=== PATIENT | female | born 1970 | race African-American/Black ===

== ENCOUNTER 2018-07-10 08:07 | Emergency (ER) | payer OTHER ==
[~2018-07-10] VITALS: Ht 160 cm; Wt 86.2 kg
--- OUTSIDE RECORDS SUMMARY | 2018-07-10 08:09 | XMS REPORT ---
Author Author [facility] Organization [facility] Address Unknown Phone Unavailable Care Team Providers Care Senior Analytical Chemist Name Role Phone Monik CORDOBA Unavailable Unavailable Problems This patient has no known problems. Allergies, Adverse Reactions, Alerts This patient has no known allergies or adverse reactions. Medications This patient has no known medications. Results Test Description Test Time Test Comments Text Results Atomic Results Result Comments KNEE LEFT THREE VIEWS [facility] [address] [address] Patient Name: FLORINA HOLLY MR #: [id number] : 1970 Age/Sex: 46/F Req #: [id number] [facility] Physician: Ordered by: ALICIA KELLER LEGAL SERVICES PROFESSIONAL Report #: [id number] Location: ER Room/Bed: Procedure: [id number] DX/KNEE LEFT THREE VIEWS Exam Date: 05/19/17 Exam Time: 1130 REPORT STATUS: Signed Left complete knee. CPT CODE: 11605. INDICATION: Pain, no trauma COMPARISON: None FINDINGS: No evidence of acute fracture or dislocation. There is mild pointing of the tibial spines. No significant medial or lateral compartment narrowing. There is a linear calcification adjacent to the lateral femoral condyle. IMPRESSION: Calcification adjacent to the lateral femoral condyle could be in the lateral collateral ligament. Early degenerative changes of the knee. Signed by: Dr. Fredrick Mcallister MD on 05/19/2017 12:49 PM Dictated By: FREDRICK MCALLISTER MD 48 Transcribed By: KRISTY on 05/19/171248 COPY TO: ALICIA KELLER NP
--- OUTSIDE RECORDS SUMMARY | 2018-07-10 08:09 | XMS REPORT | Summary of Care ---
Author Author [facility] Address [address], [address] [place] [address] Phone Care Team Providers Care Director Of Safety Name Role Phone DOMINGUEZ CHÁVEZ M.D. 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 Quantity: 30 KYLER Lee, DOMINGUEZ * Start : 21-May-2017 Active Allergies and Adverse Reactions Name Dates Details No Known Drug Allergies (Allergy) Status: Active Procedures Procedure Dates Details Procedures not documented Immunization Name Dates Details Immunizations not documented Family History Name Dates Details Family history of diabetes mellitus (V18.0, Z83.3) Comments: Family History Status: Active Family history of arthritis (V17.7, Z82.61) Comments: Family History Status: Active Family history of malignant neoplasm (V16.9, Z80.9) Comments: Family History Status: Active Family history of Heart trouble (429.9, I51.9) Comments: Family History Status: Active Social History Name Dates Details Unknown if ever smoked Vital Signs Date Test Result Details No Known Vitals to report Results Date Description Value Details Results not documented Plan of Care Name Dates Details Planned Observations Planned Goals not documented Instructions Name Dates Details Instructions not documented Encounters Appointment; DOMINGUEZ CHÁVEZ M.D. Encounter Diagnosis: Problem not documented On: 21-May-2017 13:00 Appointment; DOMINGUEZ CHÁVEZ M.D. Encounter Diagnosis: Problem not documented On: 19-Jun-2017 12:45 Appointment; DOMINGUEZ CHÁVEZ M.D. Encounter Diagnosis: Problem not documented On: 18-Jul-2017 7:30
== END 2018-07-10 08:54 | disposition home or self-care (01) ==
LOC: FSED 08:07
DX: R05 Cough (principal); J20.8 Acute bronchitis due to other specified organisms; J02.9 Acute pharyngitis, unspecified
CPT/HCPCS: 83518; 87400; 99283

== ENCOUNTER 2018-07-31 05:29 | Emergency (ER) | payer OTHER ==
[~2018-07-31] VITALS: Ht 160 cm; Wt 86.2 kg
== END 2018-07-31 06:18 | disposition home or self-care (01) ==
LOC: FSED 05:29
DX: R50.9 Fever, unspecified (principal); R05 Cough; B34.9 Viral infection, unspecified; J06.9 Acute upper respiratory infection, unspecified
CPT/HCPCS: 99282

== ENCOUNTER 2019-03-01 09:33 | Emergency (ER) | payer OTHER ==
[~2019-03-01] VITALS: Ht 162.6 cm; Wt 85.7 kg
[2019-03-01] MEDS ORDERED: DIAZEPAM 5 MG TAB PO ONE (10:15)
[2019-03-01] MEDS ORDERED: HYDROCODONE/APAP 5MG-325MG TAB PO ONE (10:15)
[2019-03-01] MEDS ORDERED: KETOROLAC TROMETHAMINE 60 MG/2 ML VIAL IM ONE (10:15)
--- NOTE | 2019-03-01 10:47 | Diagnostic Imaging Report ---
History: Occipital pain Comparison studies: None Technique: Axial images were obtained from the skull base to the vertex. Coronal and sagittal reconstructions obtained from the axial data. Dose modulation, iterative reconstruction, and/or weight based adjustment of the mA/kV was utilized to reduce the radiation dose to as low as reasonably achievable. Intravenous contrast: None Findings: Scalp/skull: No abnormalities. No fractures, blastic or lytic lesions. Extra-axial spaces: No masses. No fluid collections. Brain sulci: Appropriate for age. Ventricles: Normal in size and configuration. No hydrocephalus. Parenchyma: No abnormal densities. No masses, hemorrhage, acute or chronic cortical vascular insults. Sellar/suprasellar region: No abnormalities Craniocervical junction: Patent foramen magnum. No Chiari one malformation. Incidental findings: None. IMPRESSION: No abnormalities. Signed by: Dr. David Rob M.D. on 03/01/2019 10:44 AM
[2019-03-01 11:58] VITALS: BP 134/68
== END 2019-03-01 12:02 | disposition home or self-care (01) ==
LOC: ER 09:33
DX: G44.219 Episodic tension-type headache, not intractable (principal)
CPT/HCPCS: 70450; 99283; J1885

== ENCOUNTER 2019-03-03 13:18 | Emergency (ER) | payer OTHER ==
[~2019-03-03] VITALS: Ht 162.6 cm; Wt 85.7 kg
--- NOTE | 2019-03-03 15:10 | Diagnostic Imaging Report ---
History: Neck pain since Saturday Comparison studies: None Technique: Axial images were obtained through the cervical region.. Coronal and sagittal images reconstructed from the axial data.. Intravenous contrast: None Dose modulation, iterative reconstruction, and/or weight based adjustment of the mA/kV was utilized to reduce the radiation dose to as low as reasonably achievable. Findings: Fractures: None. Soft tissues: No gross abnormalities. Atlantoaxial articulation: Degenerative changes without acute abnormality. Alignment: Straightening of the normal lordosis. No scoliosis. Cervicomedullary junction: No abnormalities. The foramen magnum is patent. Vertebrae: No infection or neoplasm. Degenerative changes: Disc degeneration with decreased intervertebral space, endplate sclerosis and posterior osteophytes at C6-7, resulting in mild canal stenosis and mild right foraminal narrowing. Other degenerative changes without significant (moderate or severe canal stenosis or foraminal narrowing. IMPRESSION: 1. No acute cervical spine abnormalities. Mild degenerative changes of the cervical spine as described above more significant at C6-7. 2. Cannot exclude ligament, spinal cord and or vascular abnormalities on the basis of this examination. Signed by: DR Shaan Beckford M.D. on 03/03/2019 3:06 PM
[2019-03-03] MEDS ORDERED: VALIUM2 MG PO (15:50)
[2019-03-03] MEDS ORDERED: DIAZEPAM 2 MG TAB PO ONE (16:00)
== END 2019-03-03 16:36 | disposition home or self-care (01) ==
LOC: ER 13:18
DX: S16.1XXA Strain of muscle, fascia and tendon at neck level, initial encounter (principal); G89.29 Other chronic pain; X58.XXXA Exposure to other specified factors, initial encounter
CPT/HCPCS: 72125; 99283

== ENCOUNTER 2019-09-23 18:47 | Emergency (ER) | payer OTHER ==
[~2019-09-23] VITALS: Ht 162.6 cm; Wt 85.7 kg
[~2019-09-23 18:47] MED LIST: VALIUM2 MG PO
--- NOTE | 2019-09-23 20:00 | NUR ---
TO XR WITH TECH
--- NOTE | 2019-09-23 20:37 | Diagnostic Imaging Report ---
EXAMINATION: CXR 2 VIEW - HOPD INDICATION: Cough for one week ^cough, fever ^[id number] ^2010 COMPARISON: None FINDINGS: PA and lateral views TUBES and LINES: None. LUNGS: Lungs are well inflated. There is no evidence of pneumonia or pulmonary edema. PLEURA: No pleural effusion or pneumothorax. HEART AND MEDIASTINUM: The cardiomediastinal silhouette is unremarkable.. BONES AND SOFT TISSUES: No focal osseous lesions. Soft tissues are unremarkable. UPPER ABDOMEN: Unremarkable. IMPRESSION: No acute thoracic abnormality. Signed by: Dr. Bettye Mcallister MD on 09/23/2019 8:34 PM
[2019-09-23] MEDS ORDERED: TESSALON PERLE100 MG PO (21:05)
[2019-09-23] MEDS ORDERED: IBUPROFEN600 MG PO (21:05)
[2019-09-23] MEDS ORDERED: DOXYCYCLINE HY100 MG PO (21:05)
[2019-09-23 23:21] VITALS: BP 121/71
== END 2019-09-23 21:18 | disposition home or self-care (01) ==
LOC: FSED 18:47
DX: J20.9 Acute bronchitis, unspecified (principal); J06.9 Acute upper respiratory infection, unspecified
CPT/HCPCS: 71046; 99283

== ENCOUNTER 2020-04-22 05:53 | Emergency (ER) | payer OTHER ==
[~2020-04-22] VITALS: Ht 162.6 cm; Wt 85.7 kg
[~2020-04-22 05:53] MED LIST changes: +DOXYCYCLINE HY100 MG PO; +IBUPROFEN600 MG PO; +TESSALON PERLE100 MG PO
--- OUTSIDE RECORDS SUMMARY | 2020-04-22 06:17 | XMS REPORT | Continuity of Care Document ---
Author Author [facility] Organization [facility] Address [address] [place] [address] Phone Unavailable Care Team Providers Care Laboratory Equipment Installer Name Role Phone Rimma AG PCP Ke RESENDIZ Attphys Unavailable Rimma ARMON Attphys Unavailable Ke GIORDANO Attphys Unavailable DOMINGUEZ CHÁVEZ M.D. Attphys Unavailable Monik CORDOBA Attphys Unavailable Payers Payer Name Policy Type Policy Number Effective Date Expiration Date [id number] 2017 00:00:00 2018 00:0 0:00 [facility] Ppo [id number] [facility] Cigna Ppo [id number] [facility] Problems Condition Name Condition Details Condition Category Status Onset Date Resolution Date Last Treatment Date Treating Clinician Comments Source Chondromalacia of patella, right Chondromalacia of patella, righ t Problem Active [facility] Allergies, Adverse Reactions, Alerts This patient has no known allergies or adverse reactions. Family History Family Member Diagnosis Comments Start Date Stop Date Source Unknown Family Member Family history of diabetes mellitus Family Hist ory [facility] Unknown Family Member Family history of arthritis Family History [facility] Unknown Family Member Family history of malignant neoplasm Family His tory [facility] Unknown Family Member Family history of Heart trouble Family History [facility] Medications Ordered Medication Name Filled Medication Name Start Date Stop Da te Current Medication? Ordering Clinician Indication Dosage Frequency Signature (SIG) Comments Components Source Benzonatate (Tessalon Perle) 100 Mg Capsule Benzonatat e (Tessalon Perle) 100 Mg Capsule 2019-09-23 00:00:00 Yes Lawrence Resendiz Md 100 Every 8 Hours [facility] Doxycycline Hyclate 100 Mg Capsule Doxycycline Hyclate 100 M g Capsule 2019-09-23 00:00:00 Yes Lawrence Resendiz Md 100 Twice A Day [facility] Ibuprofen 600 Mg Tablet Ibuprofen 600 Mg Tablet 2019-09-23 00:00:00 Yes Lawrence Resendiz Md 600 Every 6 Hours C [facility] Diazepam (Valium) 2 Mg Tablet Diazepam (Valium) 2 Mg Tablet 2018 00:00:00 Yes Chago Jones Np 2 Every 6 Hours as nee ded for Muscle Spasms [facility] Meloxicam 7.5 MG Oral Tablet Meloxicam 7.5 MG Oral Tablet 00:00:00 Yes DOMINGUEZ CHÁVEZ M.D. QD TAKE 1 TABLET DAILY WITH FOOD . [facility] Vital Signs Vital Name Observation Time Observation Value Comments Source BP Systolic 2017-05-21 14:13:00 102 mm[Hg] [facility] BP Diastolic 2017-05-21 14:13:00 75 mm[Hg] [facility] Height 2017-05-21 14:13:00 64 [in_us] [facility] Weight 2017-05-21 14:13:00 190 [lb_av] [facility] Body Mass Index Calculated 2017-05-21 14:13:00 32.61 kg/m2 [facility] Temperature 2017-05-21 14:13:00 98.3 [degF] [facility] Heart Rate 2017-05-21 14:13:00 96 /min [facility] Procedures Procedure Date / Time Performed Performing Clinician [facility] e Computed tomography of cervical spine without contrast 03-03 00:00:00 CHRIS RAMON [facility] Computed tomography of brain without radiopaque contrast 201 03-22-18 00:00:00 SHARAD GIORDANO [facility] Encounters Start Date/Time End Date/Time Encounter Type Admission Type [facility] Facility Care Department Encounter ID Source 2019-09-23 18:47:00 2019-09-23 21:18:00 Departed Emergency Room 1 LAWRENCE RESENDIZ [facility] [id number] [facility] 2019-03-03 13:18:00 2019-03-03 16:36:00 Departed Emergency Room 1 CHRIS RAMON [facility] [id number] [facility] 2019-03-01 09:33:00 2019-03-01 12:02:00 Departed Emergency Room 1 SHARAD GIORDANO [facility] [id number] [facility] 2018-07-31 05:29:00 2018-07-31 06:18:00 Departed Emergency Room [facility] [id number] [facility] 2018-07-10 08:07:00 2018-07-10 08:54:00 Departed Emergency Room [facility] [id number] [facility] 2017-07-18 07:30:00 2017-07-18 07:30:00 Appointment; DOMINGUEZ CHÁVEZ M.D. SZETO, JOCELYN, M.D. [facility] UTP [id number] [facility] 2017-06-19 12:45:00 2017-06-19 12:45:00 Appointment; DOMINGUEZ CHÁVEZ M.D. SZETO, JOCELYN, M.D. [facility] UTP [id number] [facility] 2017-05-21 13:00:00 2017-05-21 13:00:00 Appointment; DOMINGUEZ CHÁVEZ M.D. SZETO, JOCELYN, M.D. [facility] UTP [id number] [facility] Results Test Description Test Time Test Comments Results Result Comments Source [facility] 2019-09-23 20:33:[address] [address] Patient Name: FLORINA CRANE MR #: [id number] : 1970 Age/Sex: 48/F Req #: [id number] Adm Physician: Ordered by: LAWRENCE RESENDIZ MD Report #: [id number] Location: ED Room/Bed: Procedure: [id number] HOPD/CXR 2 VIEW - HOPD Exam Date: 09/23/19 Exam Time: 2010 REPORT STATUS: Signed EXAMINATION: CXR 2 VIEW - HOPD INDICATION: Cough for one week cough, fever [id number] COMPARISON: None FINDINGS: PA and lateral views TUBES and LINES: None. LUNGS: Lungs are well inflated. There is no evidence of pneumonia or pulmonary edema. PLEURA: No pleural effusion or pneumothorax. HEART AND MEDIASTINUM: The cardiomediastinal silhouette is unremarkable.. BONES AND SOFT TISSUES: No focal osseous lesions. Soft tissues are unremarkable. UPPER ABDOMEN: Unremarkable. IMPRESSION: No acute thoracic abnormality. Signed by: Dr. Fredrick Bates MD on 09/23/2019 8:34 PM Dictated By: FREDRICK BATES MD 33 Transcribed By: KRISTY on 09/23/192033 COPY TO: LAWRENCE RESENDIZ MD CT CERVICAL SPINE WO 2019-03-03 14:48:00 [address] [address] Patient Name: FLORINA CRANE MR #: [id number] : 1970 Age/Sex: 48/F Req #: [id number] Adm Physician: Ordered by: CHRIS RAMON MD Report #: [id number] Location: ER Room/Bed: Procedure: [id number] CT/CT CERVICAL SPINE WO Exam Date: 03/03/19 Exam Time: 1430 REPORT STATUS: Signed History: Neck pain since Saturday Comparison studies: None Technique: Axial images were obtained through the cervical region.. Coronal and sagittal images reconstructed from the axial data.. Intravenous contrast: None Dose modulation, iterative reconstruction, and/or weight based adjustment of the mA/kV was utilized to reduce the radiation dose to as low as reasonably achievable. Findings: Fractures: None. Soft tissues: No gross abnormalities. Atlantoaxial articulation: Degenerative changes without acute abnormality. Alignment: Straightening of the normal lordosis. No scoliosis. Cervicomedullary junction: No abnormalities. The foramen magnum is patent. Vertebrae: No infection or neoplasm. Degenerative changes: Disc degeneration with decreased intervertebral space, endplate sclerosis and posterior osteophytes at C6-7, resulting in mild canal stenosis and mild right foraminal narrowing. Other degenerative changes without significant (moderate or severe canal stenosis or foraminal narrowing. IMPRESSION: 1. No acute cervical spine abnormalities. Mild degenerative changes of the cervical spine as described above more significant at C6-7. 2. Cannot exclude ligament, spinal cord and or vascular abnormalities on the basis of this examination. Signed by: DR Shaan Beckford M.D. on 03/03/2019 3:06 PM Dictated By: SHAAN MCKNIGHT MD 1506 Transcribed By: KRISTY on 03/03/19 1506 COPY TO: CRHIS RAMON MD CT BRAIN WO 2019-03-01 10:42:00 [address] [address] Patient Name: FLORINA CRANE MR #: [id number] : 1970 Age/Sex: 48/F Req #: [id number] Adm Physician: Ordered by: SHARAD GIORDANO MD Report #: [id number] Location: ER Room/Bed: Procedure: [id number] CT/CT BRAIN WO Exam Date: 03/01/19 Exam Time: 1026 REPORT STATUS: Signed History: Occipital pain Comparison studies: None Technique: Axial images were obtained from the skull base to the vertex. Coronal and sagittal reconstructions obtained from the axial data. Dose modulation, iterative reconstruction, and/or weight based adjustment of the mA/kV was utilized to reduce the radiation dose to as low as reasonably achievable. Intravenous contrast: None Findings: Scalp/skull: No abnormalities. No fractures, blastic or lytic lesions. Extra-axial spaces: No masses. No fluid collections. Brain sulci: Appropriate for age. Ventricles: Normal in size and configuration. No hydro cephalus. Parenchyma: No abnormal densities. No masses, hemorrhage, acute or chronic cortical vascular insults. Sellar/suprasellar region: No abnormalities Craniocervical junction: Patent foramen magnum. No Chiari one malformation. Incidental findings: None. IMPRESSION: No abnormalities. Signed by: Dr. David Gill M.D. on 03/01/2019 10:44 AM Dictated By: DAVID GILL MD, MD 1044 Transcribed By: KRISTY on 03/01/19 1044 COPY TO: SHARAD GIORDANO MD KNEE LEFT THREE VIEWS [place] [address] Patient Name: FLORINA HOLLY MR #: [id number] : 1970 Age/Sex: 46/F Req #: [id number] Adm Physician: Ordered by: ALICIA KELLER SWITCH CREW SUPERVISOR Report #: [id number] Location: ER Room/Bed: Procedure: [id number] DX/KNEE LEFT THREE VIEWS Exam Date: 05/19/17 Exam Time: 1130 REPORT STATUS: Signed Left complete knee. CPT CODE: 73258. INDICATION: Pain, no trauma COMPARISON: None FINDINGS: [...] of the knee. Signed by: Dr. Fredrick Bates MD on 05/19/2017 12:49 PM Dictated By: FREDRICK BATES MD 1249 Transcribed By: KRISTY on 05/19/17 1249 COPY TO: ALICIA KELLER NP
[2020-04-22] MEDS ORDERED: KETOROLAC TROMETHAMINE 60 MG/2 ML VIAL ONE (06:21)
[2020-04-22] MEDS ORDERED: KETOROLAC TROMETHAMINE 60 MG/2 ML VIAL IM ONE ×2 (06:30)
--- NOTE | 2020-04-22 06:35 | Emergency Department Note ---
History of Present Illnes History of Present Illness Chief Complaint: General Medicine Complaints History of Present Illness This is a 49 year old female 49 Y/O FEMALE PT AAOX3 PRESENTS TO ED WITH PAIN TO RIGHT SIDE OF NECK WITH MOVEMENT; V/S/S; NO NEURO DEFICITS NOTED; RESP RATE AND EFFORT ARE WNL, O2 SAT RA 99%; SKIN WARM, DRY, COLOR WNL FOR PT; ER MD TO TRIAGE FOR INITIAL EVAL. Historian: Patient Arrival Mode: Car Group Account Director Required: No Onset (how long ago): week(s) (3) Location: RIGHT NECK Quality: PAIN Radiation: Reports non-radiation Severity: moderate Onset quality: gradual Timing of current episode: intermittent Progression: waxing and waning Chronicity: recurrent Relieving factors: rest Exacerbating factors: movement Associated symptoms: Reports denies other symptoms Treatments prior to arrival: NSAID Past Medical/Family History Physician Review I have reviewed the patient's past medical and family history. Any updates have been documented here. Past Medical History Recent Fever: No Clinical Suspicion of Infectio: No New/Unexplained Change in Ment: No Past Medical History: Hypertension, Hyperlipedemia Other Medical History: PRE-DIABETES Past Surgical History: Hysterectomy Social History Smoking Cessation: Never Smoker Counseling Performed: No Alcohol Use: None Any Illegal Drug Use: No TB Exposure/Symptoms: No Physically hurt or threatened: No Family History Family history of heart diseas: No Other Last Tetanus: GREATER THAN 5YRS Any Pre-Existing Lines (PICC,: No Review of Systems Review of Systems Constitutional: Reports no symptoms EENTM: Reports no symptoms Cardiovascular: Reports no symptoms Respiratory: Reports no symptoms Gastrointestinal: Reports no symptoms Genitourinary: Reports no symptoms Musculoskeletal: Reports as per HPI, Reports neck pain Integumentary: Reports no symptoms Neurological: Reports no symptoms Psychological: Reports no symptoms Endocrine: Reports no symptoms Hematological/Lymphatic: Reports no symptoms Physical Exam Related Data Allergies: Coded Allergies: No Known Allergies (Unverified , 05/19/17) Triage Vital Signs Vital Signs Date Time Temp Pulse Resp B/P (MAP) Pulse Ox O2 Delivery O2 Flow Rate FiO2 04/22/20 06:13 98.4 92 17 139/81 99 Room Air Vital signs reviewed: Yes Physical Exam CONSTITUTIONAL Constitutional: Present well-developed, Present well-nourished HENT HENT: Present normocephalic, Present atraumatic, Present oropharynx clear/moist, Present nose normal HENT L/R: Present left ext ear normal, Present right ext ear normal EYES Eyes: Reports PERRL, Reports conjunctivae normal NECK Neck: Present ROM normal, Present supple, Present other (MILD TENDERNESS/SPASM RIGHT PARACERVICAL MM) PULMONARY Pulmonary: Present effort normal, Present breath sounds normal CARDIOVASCULAR Cardiovascular: Present regular rhythm, Present heart sounds normal, Present capillary refill normal, Present normal rate GASTROINTESTINAL Abdominal: Present soft, Present nontender, Present bowel sounds normal GENITOURINARY Genitourinary: Present exam deferred SKIN Skin: Present warm, Present dry MUSCULOSKELETAL Musculoskeletal: Present ROM normal NEUROLOGICAL Neurological: Present alert, Present oriented x 3, Present no gross motor or sensory deficits PSYCHOLOGICAL Psychological: Present mood/affect normal, Present judgement normal Assessment & Plan Medical Decision Making MDM MUSCLE SPASM Reassessment Reassessment DC HOME, F/U PCP, TORADOL PO, VALIUM 5 MG PO TID PRN (ONLY WHILE AT HOME, NO OPE RATING VEHICLE/MACHINERY, ETC) Assessment & Plan Final Impression: (1) Muscle strain Depart Disposition: HOME, SELF-CARE Last Vital Signs Date Time Temp Pulse Resp B/P (MAP) Pulse Ox O2 Delivery O2 Flow Rate FiO2 04/22/20 06:13 98.4 92 17 139/81 99 Room Air Home Meds Active Scripts Ibuprofen (IBUPROFEN) 600 Mg Tablet, 600 MG PO Q6H, #20 Prov:LAWRENCE RESENDIZ MD 09/23/19 Benzonatate (TESSALON PERLE) 100 Mg Capsule, 100 MG PO Q8H, #20 Prov:LAWRENCE RESENDIZ MD 09/23/19 Doxycycline Hyclate (DOXYCYCLINE HYCLATE) 100 Mg Capsule, 100 MG PO BID for 7 Days, #14 0 Refills Prov:LAWRENCE RESENDIZ MD 09/23/19 Diazepam (VALIUM) 2 Mg Tablet, 2 MG PO Q6H PRN for MUSCLE SPASMS, #20 0 Refills Prov:LEE WILKINS AGENT BASED MODELER 03/03/19 Medications in the ED Ketorolac Tromethamine 60 mg STK-MED ONCE .ROUTE ; Start 04/22/20 at 06:21; S top 04/22/20 at 06:14; Status DC Ketorolac Tromethamine 60 mg ONCE ONCE IM ; Start 04/22/20 at 06:30; Stop 04/22/20 at 06:31; Status UNV Ketorolac Tromethamine 60 mg ONCE ONCE IM ; Start 04/22/20 at 06:30; Stop 04/22/20 at 06:31; Status UNV SHARAD GIORDANO MD Apr 22, 2020 06:34
== END 2020-04-22 06:55 | disposition home or self-care (01) ==
LOC: ER 06:15
DX: S16.1XXA Strain of muscle, fascia and tendon at neck level, initial encounter (principal); I10 Essential (primary) hypertension; E78.5 Hyperlipidemia, unspecified
CPT/HCPCS: 99282; J1885

== ENCOUNTER → 2020-07-13 | Outpatient (CLI) | payer OTHER ==
[~2020-07-13] MED LIST changes: +COVID-19 VACC, MRNA(MODERNA)/PF 100 MCG/0.5 ML VIAL IM ONE
== END ==
LOC: EDSTATUS 08:51 → VACCPMC 16:30
DX: Z23 Encounter for immunization (principal); Z20.828 Contact with and (suspected) exposure to other viral communicable diseases

== ENCOUNTER → 2020-08-15 | Outpatient (CLI) | payer OTHER | LOC: VACCPMC 10:59 | DX: Z23 Encounter for immunization (principal); Z20.822 Contact with and (suspected) exposure to COVID-19 | CPT/HCPCS: 0012A; 91301 ==

== ENCOUNTER 2020-10-06 07:59 | Outpatient (RCR) | payer OTHER ==
[~2020-10-06 07:59] MED LIST changes: -COVID-19 VACC, MRNA(MODERNA)/PF 100 MCG/0.5 ML VIAL IM ONE
[2020-10-13] MEDS ORDERED: LISINOPRIL5 MG PO (18:16)
[2020-10-13] MEDS ORDERED: METFORMIN HCL500 MG PO (18:16)
== END 2020-10-12 ==
LOC: PT 07:59
PROVIDERS: ATTEND Specialist
DX: S16.1XXA Strain of muscle, fascia and tendon at neck level, initial encounter (principal)

== ENCOUNTER 2020-10-13 14:15 | Observation (INO) | payer OTHER ==
[~2020-10-13] VITALS: Ht 162.6 cm; Wt 88.9 kg
[2020-10-13] MEDS ORDERED: SODIUM CHLORIDE 0.9% 1000ML 1,000 ML IV STA (14:55)
[2020-10-13 15:36] LABS: BASOPHILS # (AUTO) 0.1 (0.0-0.1); BASOPHILS % 0.8 % (0.0-1.0); EOSINOPHILS # (AUTO) 0.1 (0.0-0.4); EOSINOPHILS % 0.8 % (0.0-6.0); HEMATOCRIT 37.8 % (34.2-44.1); HEMOGLOBIN 12.3 g/dL (12.0-16.0); LYMPHOCYTES # (AUTO) 3.7 (1.0-3.2); LYMPHOCYTES % 31.5 % (18.0-39.1); MEAN CORPUSCULAR HEMOGLOBIN 28.3 pg (28-32); MEAN CORPUSCULAR HGB CONC 32.5 g/dL (31-35); MEAN CORPUSCULAR VOLUME 87.1 fL (81-99); MONOCYTES # (AUTO) 0.6 (0.2-0.8); MONOCYTES % 5.2 % (4.4-11.3); NEUTROPHILS # (AUTO) 7.1 (2.1-6.9); NEUTROPHILS % 61.1 % (38.7-80.0); PLATELET COUNT 448 x10e3/uL (140-360); RED BLOOD COUNT 4.34 x10e6/uL (3.6-5.1); RED CELL DISTRIBUTION WIDTH 13.8 % (11.7-14.4)
[2020-10-13 15:38] LABS: INR 0.83; PROTHROMBIN TIME 11.9 seconds (11.9-14.5)
[2020-10-13 15:39] LABS: PARTIAL THROMBOPLASTIN TIME 28.7 seconds (23.8-35.5)
[2020-10-13 15:47] LABS: ALANINE AMINOTRANSFERASE 21 IU/L (0-55); ALBUMIN 3.8 g/dL (3.5-5.0); ALBUMIN/GLOBULIN RATIO 0.9 (0.8-2.0); ALKALINE PHOSPHATASE 96 IU/L (40-150); BLOOD UREA NITROGEN 12 mg/dL (7-26); BUN/CREATININE RATIO 16 (6-25); CALCIUM 9.6 mg/dL (8.4-10.2); CARBON DIOXIDE 27 mmol/L (22-29); CHLORIDE 99 mmol/L (98-107); CREATINE KINASE 83 IU/L (29-168); CREATININE, SERUM 0.74 mg/dL (0.57-1.11); EST GLOMERULAR FILTRATION RATE > 60 ML/MIN (60-); GLUCOSE 147 mg/dL (74-118); MAGNESIUM 1.8 MG/DL (1.3-2.1); SODIUM 137 mmol/L (136-145)
[2020-10-13 15:53] LABS: CLARITY,URINE SL CLOUDY (CLEAR); COLOR,URINE YELLOW (YELLOW); LEUKOCYTE ESTERASE ,URINE TRACE (NEGATIVE); NITRITE,URINE POSITIVE (NEGATIVE)
[2020-10-13 15:54] LABS: KETONES,URINE NEGATIVE (NEGATIVE); PROTEIN,URINE DIPSTICK NEGATIVE (NEGATIVE); URINE UROBILINOGEN 0.2 mg/dL (0.2 - 1)
[2020-10-13 16:05] LABS: BACTERIA,URINE MODERATE /HPF; EPITHELIAL CELLS,URINE MODERATE /LPF; RBC,URINE 0-5 /HPF (0-5); WBC,URINE (MAN) 0-5 /HPF (0-5)
[2020-10-13] MEDS ORDERED: ONDANSETRON HCL INJ 2MG/ML 2ML 2 MG/ML VIAL IV PRN (16:45)
[2020-10-13] MEDS ORDERED: SODIUM CHLORIDE 0.9% 1000ML 1,000 ML IV SCH (16:45)
[2020-10-13 18:14] VITALS: BP 123/72
[2020-10-13] MEDS ORDERED: METFORMIN HCL500 MG PO (18:16)
[2020-10-13] MEDS ORDERED: LISINOPRIL5 MG PO (18:16)
[2020-10-13 18:30] VITALS: BP 123/72
[2020-10-14] MEDS ORDERED: POLYETHYLENE GLYCOL 3350 17 GM PACK PO PRN (03:15)
[2020-10-14] MEDS ORDERED: ACETAMINOPHEN 325 MG TAB PO PRN (03:15)
[2020-10-14] MEDS ORDERED: TEMAZEPAM 7.5 MG CAP PO PRN (03:15)
[2020-10-14] MEDS ORDERED: HYDRALAZINE HCL 20 MG/ML VIAL IV PRN (03:15)
[2020-10-14 05:28] VITALS: BP 116/75
[2020-10-14 05:48] LABS: BASOPHILS # (AUTO) 0.1 (0.0-0.1); BASOPHILS % 0.7 % (0.0-1.0); EOSINOPHILS # (AUTO) 0.1 (0.0-0.4); HEMATOCRIT 35.7 % (34.2-44.1); HEMOGLOBIN 11.4 g/dL (12.0-16.0); LYMPHOCYTES # (AUTO) 3.3 (1.0-3.2); LYMPHOCYTES % 39.9 % (18.0-39.1); MEAN CORPUSCULAR HGB CONC 31.9 g/dL (31-35); MEAN CORPUSCULAR VOLUME 87.7 fL (81-99); MONOCYTES # (AUTO) 0.4 (0.2-0.8); MONOCYTES % 4.4 % (4.4-11.3); NEUTROPHILS # (AUTO) 4.4 (2.1-6.9); NEUTROPHILS % 53.8 % (38.7-80.0); PLATELET COUNT 414 x10e3/uL (140-360); RED BLOOD COUNT 4.07 x10e6/uL (3.6-5.1); RED CELL DISTRIBUTION WIDTH 13.8 % (11.7-14.4)
[2020-10-14 06:15] LABS: ALANINE AMINOTRANSFERASE 19 IU/L (0-55); ALBUMIN 3.3 g/dL (3.5-5.0); ALBUMIN/GLOBULIN RATIO 0.8 (0.8-2.0); ALKALINE PHOSPHATASE 79 IU/L (40-150); ANION GAP 12.9 mmol/L (8-16); BLOOD UREA NITROGEN 10 mg/dL (7-26); BUN/CREATININE RATIO 15 (6-25); CALCIUM 8.9 mg/dL (8.4-10.2); CARBON DIOXIDE 24 mmol/L (22-29); CHLORIDE 106 mmol/L (98-107); CREATININE, SERUM 0.67 mg/dL (0.57-1.11); EST GLOMERULAR FILTRATION RATE > 60 ML/MIN (60-); GLUCOSE 147 mg/dL (74-118); POTASSIUM 3.9 mmol/L (3.5-5.1); SODIUM 139 mmol/L (136-145)
[2020-10-14 06:35] LABS: CREATINE KINASE 58 IU/L (29-168)
[2020-10-14] MEDS ORDERED: ACCU-CHEK GUID1 EAC2 (06:54)
[2020-10-14] MEDS ORDERED: LANCET 30G-GLU1 EACH (06:55)
[2020-10-14 06:57] LABS: CHOL/HDL RATIO 4.2 (3.0-3.6); MAGNESIUM 1.8 MG/DL (1.3-2.1); PHOSPHORUS 3.9 MG/DL (2.3-4.7)
[2020-10-14 07:18] LABS: THYROID STIMULATING HORMONE 0.997 uIU/mL (0.350-4.940)
[2020-10-14 08:03] VITALS: BP 108/49
[2020-10-14] MEDS ORDERED: FAMOTIDINE 20 MG TAB PO SCH (09:00)
[2020-10-14] MEDS ORDERED: DOCUSATE SODIUM 100 MG CAP PO SCH (09:00)
[2020-10-14 09:10] VITALS: BP 108/49
== END 2020-10-14 09:50 | disposition home or self-care (01) ==
LOC: ER 14:36 → ERHOLD 16:43 → IMCU 17:46
PROVIDERS: ADMIT Internal Medicine; ATTEND Internal Medicine
DX: R42 Dizziness and giddiness (principal); T38.3X5A Adverse effect of insulin and oral hypoglycemic [antidiabetic] drugs, initial encounter; E11.9 Type 2 diabetes mellitus without complications; Z79.84 Long term (current) use of oral hypoglycemic drugs; I10 Essential (primary) hypertension; E78.5 Hyperlipidemia, unspecified; Z83.3 Family history of diabetes mellitus; Z80.9 Family history of malignant neoplasm, unspecified; Z20.822 Contact with and (suspected) exposure to COVID-19
CPT/HCPCS: 36415 ×2; 70450; 70551; 71045; 80053 ×2; 80061; 81001; 82550 ×2; 82553 ×2; 82948; 83036; 83735 ×2; 83880; 84100; 84443; 84484 ×2; 85025 ×2; 85610; 85730; 87086; 87186; 93005; 99284; G0378 ×2; J7030; U0002

== ENCOUNTER 2020-10-18 16:12 | Outpatient (RCR) | payer OTHER ==
[~2020-10-18 16:12] MED LIST changes: +ACCU-CHEK GUID1 EAC2; +LANCET 30G-GLU1 EACH; +LISINOPRIL5 MG PO; +METFORMIN HCL500 MG PO
== END 2020-11-11 ==
LOC: PT 16:12
PROVIDERS: ATTEND Specialist
DX: S16.1XXA Strain of muscle, fascia and tendon at neck level, initial encounter (principal)

== ENCOUNTER → 2021-12-13 | Outpatient (CLI) | payer BC | LOC: MAMMO 05:42 | PROVIDERS: ATTEND Family Medicine | DX: Z12.31 Encounter for screening mammogram for malignant neoplasm of breast (principal) | CPT/HCPCS: 77067 ==

== ENCOUNTER 2022-05-04 09:05 | Emergency (ER) | payer BC ==
[2022-05-04] MEDS ORDERED: DOXYCYCLINE HY100 MG PO (09:38)
== END 2022-05-04 09:46 | disposition home or self-care (01) ==
LOC: FSED 09:31
DX: L72.3 Sebaceous cyst (principal); I10 Essential (primary) hypertension; E11.9 Type 2 diabetes mellitus without complications; E78.5 Hyperlipidemia, unspecified; F17.210 Nicotine dependence, cigarettes, uncomplicated
CPT/HCPCS: 99282

== ENCOUNTER 2022-06-17 06:36 | Emergency (ER) | payer BC ==
[~2022-06-17] VITALS: Ht 162.6 cm; Wt 83.5 kg
[2022-06-17] MEDS ORDERED: DIFLUCAN100 MG PO (07:05)
[2022-06-17] MEDS ORDERED: NYSTATIN1 EAC3 TOP (07:05)
[2022-06-17] MEDS ORDERED: NYSTATIN15 G2 TOP (07:12)
== END 2022-06-17 07:15 | disposition home or self-care (01) ==
LOC: FSED 06:56
DX: B37.89 Other sites of candidiasis (principal); I10 Essential (primary) hypertension; E11.9 Type 2 diabetes mellitus without complications; E78.5 Hyperlipidemia, unspecified
CPT/HCPCS: 99283

== ENCOUNTER 2024-04-07 15:07 | Emergency (ER) | payer BC ==
[~2024-04-07] VITALS: Ht 162.6 cm; Wt 81.2 kg
[~2024-04-07 15:07] MED LIST changes: +BENZONATATE100 MG PO; +CLARITIN10 MG PO; +CYCLOBENZAPRINE10 MG PO; +DIFLUCAN100 MG PO; +FLONASE ALLERG9.9 ML INH; +GLIMEPIRIDE4 MG PO; +MUCINEX DM ER1 EAC1 PO; +NAPROSYN500 MG PO; +NYSTATIN1 EAC3 TOP; +NYSTATIN15 G2 TOP
[2024-04-07 15:22] VITALS: TEMP 98.1
[2024-04-07 15:56] LABS: BASOPHILS # (AUTO) 0.1 (0.0-0.1); BASOPHILS % 0.8 % (0.0-1.0); EOSINOPHILS # (AUTO) 0.1 (0.0-0.4); EOSINOPHILS % 0.6 % (0.0-6.0); HEMATOCRIT 45.1 % (34.2-44.1); HEMOGLOBIN 14.3 g/dL (12.0-16.0); LYMPHOCYTES # (AUTO) 3.7 (1.0-3.2); LYMPHOCYTES % 38.2 % (18.0-39.1); MEAN CORPUSCULAR HEMOGLOBIN 28.5 pg (28-32); MEAN CORPUSCULAR HGB CONC 31.7 g/dL (31-35); MONOCYTES # (AUTO) 0.5 (0.2-0.8); MONOCYTES % 5.4 % (4.4-11.3); NEUTROPHILS # (AUTO) 5.3 (2.1-6.9); NEUTROPHILS % 54.7 % (38.7-80.0); PLATELET COUNT 395 x10e3/uL (140-360); RED BLOOD COUNT 5.01 x10e6/uL (3.6-5.1); RED CELL DISTRIBUTION WIDTH 13.4 % (11.7-14.4); WHITE BLOOD COUNT 9.71 x10e3/uL (4.8-10.8)
[2024-04-07] MEDS: KETOROLAC TROMETHAMINE 30 MG/ML VIAL IV STA (16:11)
[2024-04-07 16:13] LABS: ALBUMIN/GLOBULIN RATIO 0.9 (0.8-2.0); ANION GAP 14.9 mmol/L (8-16); BILIRUBIN,TOTAL 0.4 mg/dL (0.2-1.2); CALCIUM 10.2 mg/dL (8.4-10.2); CREATININE, SERUM 0.97 mg/dL (0.57-1.11); POTASSIUM 3.9 mmol/L (3.5-5.1); TOTAL PROTEIN 8.5 g/dL (6.5-8.1)
[2024-04-07] MEDS ORDERED: INSULIN REGULAR, HUMAN 100 UNIT/1 ML IV ONE (16:30)
[2024-04-07] MEDS: INSULIN REGULAR, HUMAN 100 UNIT/1 ML IV ONE (17:35)
[2024-04-07 17:38] VITALS: PULSE 68; RESP 16
[2024-04-07] MEDS ORDERED: CLINDAMYCIN HC150 MG PO (17:57)
[2024-04-07 18:46] VITALS: BP 124/67; PULSE 72; RESP 16; O2SAT 100
== END 2024-04-07 18:46 | disposition home or self-care (01) ==
LOC: ER 15:31
DX: M79.671 Pain in right foot (principal); E11.621 Type 2 diabetes mellitus with foot ulcer; E11.65 Type 2 diabetes mellitus with hyperglycemia
CPT/HCPCS: 36415; 73660; 80053; 82948; 85025; 99284; J1885

== ENCOUNTER 2024-06-26 17:23 | Emergency (ER) | payer BC ==
[~2024-06-26] VITALS: Ht 162.6 cm; Wt 81.2 kg
[~2024-06-26 17:23] MED LIST changes: +CLINDAMYCIN HC150 MG PO
[2024-06-26 17:54] LABS: BASOPHILS # (AUTO) 0.1 (0.0-0.1); BASOPHILS % 0.6 % (0.0-1.0); EOSINOPHILS # (AUTO) 0.1 (0.0-0.4); EOSINOPHILS % 0.5 % (0.0-6.0); HEMATOCRIT 42.7 % (34.2-44.1); HEMOGLOBIN 12.9 g/dL (12.0-16.0); LYMPHOCYTES # (AUTO) 3.4 (1.0-3.2); LYMPHOCYTES % 24.2 % (18.0-39.1); MEAN CORPUSCULAR HEMOGLOBIN 28.1 pg (28-32); MEAN CORPUSCULAR HGB CONC 30.2 g/dL (31-35); MONOCYTES # (AUTO) 0.7 (0.2-0.8); MONOCYTES % 4.6 % (4.4-11.3); NEUTROPHILS # (AUTO) 9.9 (2.1-6.9); NEUTROPHILS % 69.7 % (38.7-80.0); PLATELET COUNT 389 x10e3/uL (140-360); RED BLOOD COUNT 4.59 x10e6/uL (3.6-5.1); RED CELL DISTRIBUTION WIDTH 13.3 % (11.7-14.4); WHITE BLOOD COUNT 14.21 x10e3/uL (4.8-10.8)
[2024-06-26 18:03] LABS: INR 0.91; PROTHROMBIN TIME 12.8 seconds (11.9-14.5); STREPTOCOCCUS GRP A ANTIGEN NEGATIVE (NEGATIVE)
[2024-06-26 18:04] LABS: PARTIAL THROMBOPLASTIN TIME 28.5 seconds (23.8-35.5)
[2024-06-26 18:12] LABS: ALBUMIN 3.7 g/dL (3.5-5.0); ALBUMIN/GLOBULIN RATIO 0.9 (0.8-2.0); ANION GAP 15.7 mmol/L (8-16); BILIRUBIN,TOTAL 0.4 mg/dL (0.2-1.2); CALCIUM 9.8 mg/dL (8.4-10.2); CREATININE, SERUM 0.8 mg/dL (0.57-1.11); MAGNESIUM 2.1 MG/DL (1.3-2.1); POTASSIUM 3.7 mmol/L (3.5-5.1); TOTAL PROTEIN 7.9 g/dL (6.5-8.1)
[2024-06-26 18:13] LABS: CORONAVIRUS COVID-19 AG NEGATIVE (NEGATIVE); INFLUENZA A AG NEGATIVE (NEGATIVE); INFLUENZA B AG NEGATIVE (NEGATIVE)
[2024-06-26] MEDS: DEXAMETHASONE SOD PHOS 10 MG/1 ML VIAL IV ONE (18:32)
[2024-06-26] MEDS: SODIUM CHLORIDE 0.9% 1000ML 1,000 ML IV STA (18:32)
[2024-06-26 20:30] VITALS: PULSE 72; RESP 16; TEMP 98.5; O2SAT 98
[2024-06-26] MEDS ORDERED: PENICILLIN V P500 MG PO (20:32)
== END 2024-06-26 20:42 | disposition home or self-care (01) ==
LOC: ER 17:44
DX: J03.90 Acute tonsillitis, unspecified (principal); H92.01 Otalgia, right ear; E11.65 Type 2 diabetes mellitus with hyperglycemia; Z11.52 Encounter for screening for COVID-19
CPT/HCPCS: 36415; 70491; 71045; 80053; 83518; 83735; 85025; 85610; 85730; 87040; 87070; 87428; 99284; J0696; J1100; J7030

== ENCOUNTER 2024-07-01 09:30 | Inpatient (IN) | payer BC ==
[~2024-07-01] VITALS: Ht 162.6 cm; Wt 81.2 kg
[2024-07-01 09:30] VITALS: TEMP 98.1
[~2024-07-01 09:30] MED LIST changes: +PENICILLIN V P500 MG PO
[2024-07-01] MEDS: DEXAMETHASONE SOD PHOS 10 MG/1 ML VIAL IV STA (09:49)
[2024-07-01 10:07] LABS: BASOPHILS % 0.1 % (0.0-1.0); EOSINOPHILS % 0.1 % (0.0-6.0); HEMOGLOBIN 13.1 g/dL (12.0-16.0); LYMPHOCYTES # (AUTO) 2.9 (1.0-3.2); LYMPHOCYTES % 16.2 % (18.0-39.1); MEAN CORPUSCULAR HEMOGLOBIN 28.1 pg (28-32); MEAN CORPUSCULAR HGB CONC 30.5 g/dL (31-35); MEAN CORPUSCULAR VOLUME 92.1 fL (81-99); MONOCYTES # (AUTO) 0.7 (0.2-0.8); MONOCYTES % 4.1 % (4.4-11.3); NEUTROPHILS # (AUTO) 13.9 (2.1-6.9); NEUTROPHILS % 78.9 % (38.7-80.0); PLATELET COUNT 492 x10e3/uL (140-360); RED BLOOD COUNT 4.67 x10e6/uL (3.6-5.1); RED CELL DISTRIBUTION WIDTH 13.2 % (11.7-14.4); WHITE BLOOD COUNT 17.66 x10e3/uL (4.8-10.8)
[2024-07-01 10:25] LABS: ALBUMIN 3.3 g/dL (3.5-5.0); ALBUMIN/GLOBULIN RATIO 0.6 (0.8-2.0); ANION GAP 18.8 mmol/L (8-16); BILIRUBIN,TOTAL 0.3 mg/dL (0.2-1.2); CREATININE, SERUM 0.8 mg/dL (0.57-1.11); POTASSIUM 3.8 mmol/L (3.5-5.1); TOTAL PROTEIN 8.4 g/dL (6.5-8.1)
[2024-07-01 10:31] LABS: TROPONIN I 0.007 ng/mL (0-0.300)
[2024-07-01] MEDS: ONDANSETRON HCL INJ 2MG/ML 2ML 2 MG/ML VIAL IV STA (12:27)
[2024-07-01] MEDS: Morphine 4mg INJECTION 4 MG/ML INJ IV STA (12:44)
[2024-07-01] MEDS: LIDOCAINE 1% W/EPINEPHRINE 20 ML VIAL INJ STA (14:53)
[2024-07-01 16:18] VITALS: PULSE 62; RESP 16
[2024-07-01 18:59] VITALS: BP 128/72; PULSE 61; RESP 18; TEMP 96.9; O2SAT 97
[2024-07-01 20:00] VITALS: BP 124/65; PULSE 61; RESP 18; TEMP 97; O2SAT 100
[2024-07-01] MEDS ORDERED: BISACODYL 10 MG SUPP PR PRN (21:15)
[2024-07-01 22:52] VITALS: BP 124/65; PULSE 61; RESP 18; TEMP 97; O2SAT 100
[2024-07-02] VITALS (12 sets, daily range): BP systolic 112–157; BP diastolic 60–78; PULSE 50–70; RESP 17–20; TEMP 96.7–98; O2SAT 98–100
[2024-07-02 02:26] LABS: TROPONIN I 0.003 ng/mL (0-0.300)
[2024-07-02 05:09] LABS: BASOPHILS % 0.2 % (0.0-1.0); HEMATOCRIT 43.2 % (34.2-44.1); HEMOGLOBIN 12.8 g/dL (12.0-16.0); LYMPHOCYTES # (AUTO) 2.9 (1.0-3.2); LYMPHOCYTES % 23.6 % (18.0-39.1); MEAN CORPUSCULAR HGB CONC 29.6 g/dL (31-35); MEAN CORPUSCULAR VOLUME 94.5 fL (81-99); MONOCYTES # (AUTO) 0.6 (0.2-0.8); MONOCYTES % 5.1 % (4.4-11.3); NEUTROPHILS # (AUTO) 8.6 (2.1-6.9); NEUTROPHILS % 70.7 % (38.7-80.0); PLATELET COUNT 235 x10e3/uL (140-360); RED BLOOD COUNT 4.57 x10e6/uL (3.6-5.1); RED CELL DISTRIBUTION WIDTH 13.3 % (11.7-14.4); WHITE BLOOD COUNT 12.09 x10e3/uL (4.8-10.8)
[2024-07-02 05:43] LABS: ALBUMIN 3.1 g/dL (3.5-5.0); ALBUMIN/GLOBULIN RATIO 0.7 (0.8-2.0); ANION GAP 19.3 mmol/L (8-16); BILIRUBIN,TOTAL 0.3 mg/dL (0.2-1.2); CALCIUM 9.9 mg/dL (8.4-10.2); CREATININE, SERUM 0.76 mg/dL (0.57-1.11); POTASSIUM 4.3 mmol/L (3.5-5.1); TOTAL PROTEIN 7.8 g/dL (6.5-8.1)
[2024-07-02 06:35] LABS: FREE T4 (FREE THYROXINE) 0.86 ng/dL (0.8-1.8); THYROID STIMULATING HORMONE 0.094 uIU/mL (0.350-4.940)
[2024-07-02] MEDS: DOCUSATE SODIUM 100 MG CAP PO SCH (08:19)
[2024-07-02] MEDS: SENNOSIDES 8.6 MG TAB PO SCH (08:19)
[2024-07-02] MEDS: SODIUM CHLORIDE 0.9% 500ML 500 ML IV ONE (10:42)
[2024-07-02] MEDS ORDERED: CLEOCIN HCL300 MG PO (11:30)
[2024-07-02] MEDS ORDERED: PANTOPRAZOLE SO40 MG PO (11:30)
[2024-07-02] MEDS ORDERED: KETOROLAC TROME10 MG PO (11:30)
[2024-07-02] MEDS: SODIUM CHLORIDE 0.9% 1000ML 1,000 ML IV SCH (12:10)
[2024-07-02] MEDS ORDERED: KETOROLAC TROMETHAMINE 30 MG/ML VIAL IV PRN (12:15)
[2024-07-02 13:33] LABS: TROPONIN I 0.001 ng/mL (0-0.300)
[2024-07-02] MEDS ORDERED: SODIUM CHLORIDE 0.9% 1000ML 1,000 ML IV SCH (14:05)
[2024-07-02] MEDS: ONDANSETRON HCL INJ 2MG/ML 2ML 2 MG/ML VIAL IV PRN (15:55)
[2024-07-02] MEDS: KETOROLAC TROMETHAMINE 30 MG/ML VIAL IV ONE (15:56)
[2024-07-02] MEDS: Morphine 4mg INJECTION 4 MG/ML INJ IV PRN (15:57)
[2024-07-02 19:44] LABS: BILIRUBIN,URINE SMALL (NEGATIVE); CLARITY,URINE SL CLOUDY (CLEAR); COLOR,URINE YELLOW (YELLOW); GLUCOSE, URINE 500 (NEGATIVE); KETONES,URINE TRACE (NEGATIVE); LEUKOCYTE ESTERASE ,URINE NEGATIVE (NEGATIVE); NITRITE,URINE NEGATIVE (NEGATIVE); PH,URINE 5 (5 - 7); PROTEIN,URINE DIPSTICK NEGATIVE (NEGATIVE); URINE UROBILINOGEN 0.2 mg/dL (0.2 - 1)
[2024-07-02 19:54] LABS: BACTERIA,URINE MODERATE /HPF; TRANSITIONAL EPI CELLS,URINE FEW
[2024-07-03] VITALS: BP 112/62; PULSE 58; RESP 18; TEMP 97.4; O2SAT 98
[2024-07-03 04:00] VITALS: BP 128/62; PULSE 57; RESP 18; TEMP 97.3; O2SAT 100
[2024-07-03 05:18] LABS: BASOPHILS % 0.2 % (0.0-1.0); EOSINOPHILS % 0.4 % (0.0-6.0); HEMATOCRIT 36.4 % (34.2-44.1); HEMOGLOBIN 11.6 g/dL (12.0-16.0); LYMPHOCYTES % 40.6 % (18.0-39.1); MEAN CORPUSCULAR HEMOGLOBIN 28.6 pg (28-32); MEAN CORPUSCULAR HGB CONC 31.9 g/dL (31-35); MEAN CORPUSCULAR VOLUME 89.7 fL (81-99); MONOCYTES # (AUTO) 0.7 (0.2-0.8); MONOCYTES % 7.5 % (4.4-11.3); NEUTROPHILS % 50.8 % (38.7-80.0); PLATELET COUNT 437 x10e3/uL (140-360); RED BLOOD COUNT 4.06 x10e6/uL (3.6-5.1); RED CELL DISTRIBUTION WIDTH 13.2 % (11.7-14.4); WHITE BLOOD COUNT 9.88 x10e3/uL (4.8-10.8)
[2024-07-03 05:41] LABS: ABG HCO3 30 mmol/L (22-26); ABG PCO2 51 mmHg (35-45); ABG PH 7.38 (7.35-7.45); ABG PO2 24 mmHg (80-105); ABG TCO2 32
[2024-07-03 05:53] LABS: ANION GAP 14.1 mmol/L (8-16); CREATININE, SERUM 0.8 mg/dL (0.57-1.11); POTASSIUM 4.1 mmol/L (3.5-5.1)
[2024-07-03 05:54] LABS: CALCIUM 8.8 mg/dL (8.4-10.2)
[2024-07-03 08:00] VITALS: BP 139/72; PULSE 98; RESP 16; TEMP 98; O2SAT 100
[2024-07-03 08:42] VITALS: BP 139/72; PULSE 98; RESP 16; TEMP 98; O2SAT 100
[2024-07-03 11:24] VITALS: BP 128/61; PULSE 64; RESP 18; TEMP 97.7; O2SAT 99
[2024-07-03] MEDS ORDERED: ONDANSETRON HCL 4 MG ORAL DISINTEGRATING TAB PO PRN (14:30)
[2024-07-03] MEDS ORDERED: PANTOPRAZOLE SOD 40 MG TABEC PO SCH (16:30)
== END 2024-07-03 14:45 | disposition home or self-care (01) | DRG 144 ==
LOC: ER 09:37 → ERHOLD 17:30 → MED/SURG 18:30 → OBSVTOIN 07-02 16:17
PROVIDERS: ADMIT Internal Medicine; ATTEND Internal Medicine
PROC: 0W960ZZ Drainage of Neck, Open Approach (ICD-10-PCS; principal; 2024-07-01)
PROC: 3E0333Z Introduction of Anti-inflammatory into Peripheral Vein, Percutaneous Approach (ICD-10-PCS; 2024-07-01)
PROC: 4A133R1 Monitoring of Arterial Saturation, Peripheral, Percutaneous Approach (ICD-10-PCS; 2024-07-02)
DX: J36 Peritonsillar abscess (principal); E87.20 Acidosis, unspecified; E04.1 Nontoxic single thyroid nodule; E11.65 Type 2 diabetes mellitus with hyperglycemia; E78.2 Mixed hyperlipidemia; B96.89 Other specified bacterial agents as the cause of diseases classified elsewhere; K21.00 Gastro-esophageal reflux disease with esophagitis, without bleeding; K29.70 Gastritis, unspecified, without bleeding; R07.9 Chest pain, unspecified; N63.20 Unspecified lump in the left breast, unspecified quadrant; R53.81 Other malaise; Z79.51 Long term (current) use of inhaled steroids; Z79.84 Long term (current) use of oral hypoglycemic drugs; Z90.710 Acquired absence of both cervix and uterus; Z83.3 Family history of diabetes mellitus; Z82.49 Family history of ischemic heart disease and other diseases of the circulatory system
CPT/HCPCS: 36415; 70491; 71045; 71260; 80048; 80053; 81001; 82550; 82805; 82948; 83036; 83605; 83690; 83735; 83880; 84439; 84443; 84480; 84481; 84484; 85025; 87040; 87071; 87205; 93005; 93306; 94799; 99285; G0378; J1100; J1885; J2270; J2405; J2470; J2543; J7030; J7040

== ENCOUNTER → 2024-08-07 | Outpatient (REF) | payer BC ==
[~2024-08-07] MED LIST changes: +CLEOCIN HCL300 MG PO; +KETOROLAC TROME10 MG PO; +PANTOPRAZOLE SO40 MG PO
== END ==
LOC: US 11:56
PROVIDERS: ATTEND Internal Medicine
DX: E04.1 Nontoxic single thyroid nodule (principal)
CPT/HCPCS: 76536

== ENCOUNTER → 2024-08-31 | Day surgery (SDC) | payer BC, OTHER ==
[~2024-08-31] MED LIST changes: +FENTANYL CITRATE/PF 100MCG/2 ML INJ ONE; +GLUCAGON FOR INJ 1 MG VIAL ONE; +HYOSCYAMINE SULFATE 0.5 MG/ML INJ ONE; +JARDIANCE25 MG PO; +LIDOCAINE HCL 2% LOCAL INJ 5 ML SDV VIAL INJ ONE; +METOCLOPRAMIDE HCL 10 MG/2ML VIAL ONE; +PROPOFOL IV EMULSION 10 MG/ML 20 ML VIAL ONE; +PROPOFOL IV EMULSION 50 ML IV ONE
[2024-08-31] MEDS: LACTATED RINGER'S 1,000 ML ONE (06:37)
[2024-08-31 08:56] VITALS: TEMP 98.1
[2024-08-31 09:10] VITALS: BP 148/88; PULSE 87; RESP 16; O2SAT 97
== END | disposition home or self-care (01) ==
LOC: OR 05:54
PROVIDERS: ATTEND Internal Medicine Gastroenterology
DX: Z12.11 Encounter for screening for malignant neoplasm of colon (principal); D12.2 Benign neoplasm of ascending colon; K62.1 Rectal polyp; K29.50 Unspecified chronic gastritis without bleeding; K20.90 Esophagitis, unspecified without bleeding; I89.0 Lymphedema, not elsewhere classified; K44.9 Diaphragmatic hernia without obstruction or gangrene; K57.30 Diverticulosis of large intestine without perforation or abscess without bleeding; K62.89 Other specified diseases of anus and rectum; K58.1 Irritable bowel syndrome with constipation; K64.8 Other hemorrhoids; D64.9 Anemia, unspecified; E11.9 Type 2 diabetes mellitus without complications; I10 Essential (primary) hypertension; R05.8 Other specified cough; Z01.810 Encounter for preprocedural cardiovascular examination; Z79.84 Long term (current) use of oral hypoglycemic drugs; Z79.899 Other long term (current) drug therapy
CPT/HCPCS: 43239; 45380; 45385; 93005; J1610; J1980; J2003; J2470; J2704 ×2; J2765; J3010; J7121; 45378

== ENCOUNTER 2024-10-27 14:52 | Emergency (ER) | payer BC, OTHER ==
[~2024-10-27] VITALS: Ht 162.6 cm; Wt 74.4 kg
[~2024-10-27 14:52] MED LIST changes: -FENTANYL CITRATE/PF 100MCG/2 ML INJ ONE; -GLUCAGON FOR INJ 1 MG VIAL ONE; -HYOSCYAMINE SULFATE 0.5 MG/ML INJ ONE; -LIDOCAINE HCL 2% LOCAL INJ 5 ML SDV VIAL INJ ONE; -METOCLOPRAMIDE HCL 10 MG/2ML VIAL ONE; -PROPOFOL IV EMULSION 10 MG/ML 20 ML VIAL ONE; -PROPOFOL IV EMULSION 50 ML IV ONE
[2024-10-27 15:10] VITALS: RESP 16; TEMP 98
[2024-10-27] MEDS ORDERED: ONDANSETRON HCL INJ 2MG/ML 2ML 2 MG/ML VIAL ONE (15:33)
[2024-10-27 15:34] LABS: BASOPHILS # (AUTO) 0.1 (0.0-0.1); BASOPHILS % 0.4 % (0.0-1.0); EOSINOPHILS % 0.3 % (0.0-6.0); HEMATOCRIT 43.3 % (34.2-44.1); LYMPHOCYTES # (AUTO) 2.5 (1.0-3.2); MEAN CORPUSCULAR HEMOGLOBIN 28.3 pg (28-32); MEAN CORPUSCULAR HGB CONC 32.3 g/dL (31-35); MEAN CORPUSCULAR VOLUME 87.7 fL (81-99); MONOCYTES # (AUTO) 0.4 (0.2-0.8); NEUTROPHILS # (AUTO) 9.5 (2.1-6.9); PLATELET COUNT 440 x10e3/uL (140-360); RED BLOOD COUNT 4.94 x10e6/uL (3.6-5.1); WHITE BLOOD COUNT 12.45 x10e3/uL (4.8-10.8)
[2024-10-27] MEDS ORDERED: SODIUM CHLORIDE 0.9% 1000ML 1,000 ML ONE (15:34)
[2024-10-27] MEDS ORDERED: Morphine 4mg INJECTION 4 MG/ML INJ ONE (15:34)
[2024-10-27 15:36] LABS: CLARITY,URINE CLEAR (CLEAR); COLOR,URINE YELLOW (YELLOW); PH,URINE 5.5 (5 - 7)
[2024-10-27] MEDS: ONDANSETRON HCL INJ 2MG/ML 2ML 2 MG/ML VIAL IV STA (15:36)
[2024-10-27] MEDS: SODIUM CHLORIDE 0.9% 1000ML 1,000 ML IV ONE (15:36)
[2024-10-27 15:37] LABS: BILIRUBIN,URINE NEGATIVE (NEGATIVE); GLUCOSE, URINE 500 (NEGATIVE); KETONES,URINE 1+ (NEGATIVE); LEUKOCYTE ESTERASE ,URINE NEGATIVE (NEGATIVE); NITRITE,URINE NEGATIVE (NEGATIVE); PROTEIN,URINE DIPSTICK NEGATIVE (NEGATIVE); URINE UROBILINOGEN 0.2 mg/dL (0.2 - 1)
[2024-10-27] MEDS: Morphine 4mg INJECTION 4 MG/ML INJ IV ONE (15:37)
[2024-10-27 15:40] LABS: BACTERIA,URINE FEW /HPF; EPITHELIAL CELLS,URINE FEW /LPF
[2024-10-27 15:58] LABS: ALANINE AMINOTRANSFERASE 21 IU/L (0-55); ALBUMIN 3.9 g/dL (3.5-5.0); ALKALINE PHOSPHATASE 84 IU/L (40-150); BILIRUBIN,TOTAL 0.4 mg/dL (0.2-1.2); BLOOD UREA NITROGEN 16 mg/dL (7-26); BUN/CREATININE RATIO 19 (6-25); CALCIUM 9.9 mg/dL (8.4-10.2); CARBON DIOXIDE 23 mmol/L (22-29); CHLORIDE 105 mmol/L (98-107); CREATININE, SERUM 0.83 mg/dL (0.57-1.11); EST GLOMERULAR FILTRATION RATE 84 ML/MIN (>=60); GLUCOSE 183 mg/dL (74-118); LIPASE 30 U/L (8-78); SODIUM 139 mmol/L (136-145); TOTAL PROTEIN 7.9 g/dL (6.5-8.1)
[2024-10-27] MEDS ORDERED: IOPAMIDOL 370 MG/ML 100 ML INFUS..BTL INJ ONE (16:11)
[2024-10-27 17:00] VITALS: PULSE 81; O2SAT 98
== END 2024-10-27 17:21 | disposition home or self-care (01) ==
LOC: ER 15:09
DX: R10.31 Right lower quadrant pain (principal); K52.9 Noninfective gastroenteritis and colitis, unspecified; M54.50 Low back pain, unspecified; E11.65 Type 2 diabetes mellitus with hyperglycemia
CPT/HCPCS: 36415; 74177; 80053; 81001; 83690; 84702; 85025; 99284; J2270; J2405; J7030; Q9967

== ENCOUNTER → 2025-02-15 | Outpatient (REF) | payer BC | LOC: MAMMO 07:45 | PROVIDERS: ATTEND Internal Medicine | DX: Z12.31 Encounter for screening mammogram for malignant neoplasm of breast (principal) | CPT/HCPCS: 77067 ==